=== PATIENT | male | born 2005 | race American Indian/Alaskan Native ===

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

== ENCOUNTER 2023-06-12 22:18 | Emergency (ER) | payer SELFPAY ==
[2023-06-12] MEDS ORDERED: Sodium Chloride 0.9% 10 ML Syringe FLUSH PRN (22:25)
[2023-06-12 22:36] LABS: HEMATOCRIT 50.7 % (40.0-54.0); HEMOGLOBIN 17.2 g/dL (14.0-18.0); MEAN CORPUSCULAR HEMOGLOBIN 29.6 pg (27.0-34.0); MEAN CORPUSCULAR HGB CONC 33.9 g/dL (33.0-35.0); MEAN CORPUSCULAR VOLUME 87.3 fL (80-100); PLATELET COUNT,PLT 287 10^3/uL (150-450); RED BLOOD CELL COUNT 5.81 10^6/uL (4.6-6.2); WHITE BLOOD CELL COUNT,WBC 20.2 10^3/uL (5.0-10.0)
[2023-06-12 22:37] LABS: EOSINOPHILS PERCENT AUTO 0.4 % (1.0-3.0); LYMPHOCYTES PERCENT AUTO 9.5 % (20.5-50.1); NEUTROPHILS PERCENT AUTO 85.1 % (42.2-75.2)
[2023-06-12 22:54] LABS: ALANINE AMINOTRANSFERASE,ALT 43 U/L (16-63); ALBUMIN 3.9 g/dL (3.4-5.0); ALKALINE PHOSPHATASE 74 U/L (46-116); ASPARTATE AMNIOTRANSFERASE,AST 79 U/L (15-37); BILIRUBIN TOTAL 0.8 mg/dL (0.2-1.0); BLOOD UREA NITROGEN,BUN 9 mg/dL (7-18); BUN/CREATININE RATIO 8.9 (No establ ref range); CALCIUM 8.4 mg/dL (8.5-10.1); CARBON DIOXIDE,CO2 17 mmol/L (21-32); CHLORIDE,CL 98 mmol/L (98-107); CREATININE 1.01 mg/dL (0.70-1.30); ETHANOL BLOOD MEDICAL 78 mg/dL (0); GLUCOSE RANDOM 135 mg/dL (70-99); PROTEIN TOTAL,TP 7.9 g/dL (6.4-8.2); SODIUM,NA 139 mmol/L (136-145)
[2023-06-12 22:57] LABS: LYMPHOCYTES PERCENT MAN 7 % (20-50); MONOCYTES PERCENT MAN 9 % (2-8); SEG NEUTROPHILS PERCENT MAN 84 % (42-75)
[2023-06-12] MEDS ORDERED: Ketamine 500 mg/10 ML MDV IVPUSH ONE (22:58)
[2023-06-12] MEDS ORDERED: Rocuronium 100 MG/10 ML MDV IVPUSH ONE (22:58)
[2023-06-12] MEDS ORDERED: Benzocaine 20% Topical Spray UD MUCMEM ONE (22:59)
[2023-06-12 23:00] LABS: ESTIMATED GFR 110 mL/min (>=60)
[2023-06-12] MEDS ORDERED: propofoL 100 ML IV SCH (23:00)
[2023-06-12 23:26] LABS: APPEARANCE,URINE CLEAR (CLEAR); BILIRUBIN,URINE NEGATIVE (NEGATIVE); COLOR,URINE YELLOW (YELLOW); GLUCOSE,URINE NEGATIVE (NEGATIVE); KETONES,URINE 15 (NEGATIVE); LEUKOCYTE ESTERASE,URINE NEGATIVE (NEGATIVE); NITRITE,URINE NEGATIVE (NEGATIVE); OCCULT BLOOD,URINE MODERATE (NEGATIVE); PROTEIN,URINE 100 (NEGATIVE); UROBILINOGEN,URINE 0.2 mg/dL (0.2-1.0)
[2023-06-12 23:29] LABS: AMPHETAMINES,URINE NEGATIVE (NEGATIVE); BARBITURATES,URINE NEGATIVE (NEGATIVE); BENZODIAZEPINE,URINE NEGATIVE (NEGATIVE); MDMA (ECSTASY), URINE NEGATIVE (NEGATIVE); METHADONE,URINE NEGATIVE (NEGATIVE); METHAMPHETAMINES,URINE NEGATIVE (NEGATIVE); OPIATES,URINE NEGATIVE (NEGATIVE); OXYCODONE,URINE NEGATIVE (NEGATIVE); PHENCYCLIDINE,URINE NEGATIVE (NEGATIVE); TCA,URINE NEGATIVE (NEGATIVE)
[2023-06-12] MEDS ORDERED: fentaNYL 100 MCG/2 ML SDV IVPUSH ONE (23:34)
[2023-06-12] MEDS ORDERED: fentaNYL 100 MCG/2 ML SDV ONE (23:35)
[2023-06-12 23:44] LABS: O2 DELIVERY DEVICE RESUSCITATION BAG
[2023-06-12 23:45] LABS: BASE EXCESS ARTERIAL -6 mmol/L ((-2)-(+3)); BICARBONATE,ARTERIAL 21.3 mmol/L (22-26); O2 SATURATION ARTERIAL 100 % (95-100); PCO2 ARTERIAL 49 mmHg (35-45); PH,ARTERIAL 7.26 (7.35-7.45); PO2 ARTERIAL 509 mmHg (70-100)
[2023-06-12] MEDS ORDERED: fentaNYL 500 MCG in Sodium Chloride 0.9% 50 ML IV SCH (23:45)
[2023-06-12 23:47] LABS: ALLEN TEST positive
[2023-06-12 23:47] LABS: BACTERIA,URINE FEW /HPF (0-FEW/HPF); EPITHELIAL CELLS,URINE FEW /HPF (NOT SEEN); FINE GRANULAR CASTS,URINE FEW /LPF (NOT SEEN); MUCUS,URINE FEW /LPF (NOT SEEN)
[2023-06-13 02:11] VITALS: BP 122/86; PULSE 124
== END 2023-06-13 01:30 ==
LOC: DL.ED 22:18
DX: S00.11XA Contusion of right eyelid and periocular area, initial encounter (principal); S00.12XA Contusion of left eyelid and periocular area, initial encounter; R41.82 Altered mental status, unspecified; Y04.0XXA Assault by unarmed brawl or fight, initial encounter
CPT/HCPCS: 31500; 36415; 36600; 70450; 70486; 71045; 72125; 80053; 80305-QW; 80307; 81001; 82803; 85025; 86850; 86900; 86901; 99285

== ENCOUNTER 2024-07-19 09:00 | Emergency (ER) | payer MEDICAID, OTHER ==
[2024-07-19] MEDS ORDERED: Sodium Chloride 0.9% 10 ML Syringe FLUSH PRN (09:14)
[2024-07-19] MEDS: Sodium Chloride 0.9% 1,000 ML IV SCH (09:20)
[2024-07-19 09:23] LABS: BASOPHILS PERCENT AUTO 0.5 % (0.0-1.0); EOSINOPHILS PERCENT AUTO 1.1 % (1.0-3.0); HEMATOCRIT 48.2 % (40.0-54.0); HEMOGLOBIN 16.5 g/dL (14.0-18.0); LYMPHOCYTES PERCENT AUTO 30.6 % (20.5-50.1); MEAN CORPUSCULAR HEMOGLOBIN 30.3 pg (27.0-34.0); MEAN CORPUSCULAR HGB CONC 34.2 g/dL (33.0-35.0); MEAN CORPUSCULAR VOLUME 88.6 fL (80-100); MONOCYTES PERCENT AUTO 8.4 % (2-8); NEUTROPHILS PERCENT AUTO 59.4 % (42.2-75.2); PLATELET COUNT,PLT 333 10^3/uL (150-450); RED BLOOD CELL COUNT 5.44 10^6/uL (4.6-6.2); WHITE BLOOD CELL COUNT,WBC 6.3 10^3/uL (5.0-10.0)
[2024-07-19 09:43] LABS: PROTHROMBIN TIME 10.6 SEC (9.0-12.0); PTT,PARTIAL THROMBOPLSTIN TIME 27.4 SEC (22.0-34.0)
[2024-07-19 09:45] LABS: ALANINE AMINOTRANSFERASE,ALT 74 U/L (16-63); ALBUMIN 4.1 g/dL (3.4-5.0); ALKALINE PHOSPHATASE 78 U/L (46-116); ANION GAP 17.7 mEq/L (7-13); ASPARTATE AMNIOTRANSFERASE,AST 47 U/L (15-37); BILIRUBIN TOTAL 0.8 mg/dL (0.2-1.0); BLOOD UREA NITROGEN,BUN 5 mg/dL (7-18); BUN/CREATININE RATIO 4.8 (No establ ref range); CALCIUM 8.9 mg/dL (8.5-10.1); CARBON DIOXIDE,CO2 24 mmol/L (21-32); CHLORIDE,CL 106 mmol/L (98-107); CREATININE 1.04 mg/dL (0.70-1.30); ETHANOL BLOOD MEDICAL 145 mg/dL (0); GLUCOSE RANDOM 100 mg/dL (70-99); POTASSIUM,K 3.7 mmol/L (3.5-5.1); PROTEIN TOTAL,TP 8.2 g/dL (6.4-8.2); SODIUM,NA 144 mmol/L (136-145)
[2024-07-19 09:49] LABS: ESTIMATED GFR 105 mL/min (>=60)
[2024-07-19] MEDS: Folic Acid 1 MG Tab PO ONE (11:47)
[2024-07-19] MEDS: Thiamine 100 MG Tab PO ONE (11:47)
[2024-07-19] MEDS: Iopamidol 612 MG/ML 100 ML Bottle IVPUSH ONE (11:49)
== END 2024-07-19 11:59 | disposition home or self-care (01) ==
LOC: DL.ED 09:00
DX: S16.1XXA Strain of muscle, fascia and tendon at neck level, initial encounter (principal); S20.211A Contusion of right front wall of thorax, initial encounter; S30.1XXA Contusion of abdominal wall, initial encounter; F10.920 Alcohol use, unspecified with intoxication, uncomplicated; V49.49XA Driver injured in collision with other motor vehicles in traffic accident, initial encounter; Y90.5 Blood alcohol level of 100-119 mg/100 ml
CPT/HCPCS: 36415; 70450; 71260; 72125; 74177; 80053; 80307; 85025; 85610; 85730; 93005; 93010; 96360; 99284; 99285; A9270; J7030; Q9967